=== PATIENT | female | born 1930 | race Caucasian/White ===

== ENCOUNTER → 2016-11-09 | Outpatient (CLI) | payer MEDICARE ==
[~2016-11-09] MED LIST: ANTIVERT PO; CALCIUM 6001 TA1 PO; COD LIVER OIL PO; FISH OIL1000 MG PO; GLIMEPIRIDE2 MG PO; GLYBURIDE2.5 MG PO; IBUPROFEN1 CRY PO; MAGNESIUM PO; NEXIUM40 MG PO; PRILOSEC20 MG PO; PROBIOTIC FORMU1 CA1 PO; REGLAN5 MG PO; SUPER B COMPLEX1 CAP PO; SYNTHROID,LEV100 MCG PO; VISION FORMULA1 TAB PO; VITAMIN D31000 I1 PO; [UNRECOGNIZED DRUG - OTHER] PO; [UNRECOGNIZED DRUG - OTHER] PO
== END ==
LOC: CT 09:28
DX: K57.30 Diverticulosis of large intestine without perforation or abscess without bleeding (principal); M47.893 Other spondylosis, cervicothoracic region; M40.294 Other kyphosis, thoracic region; M47.896 Other spondylosis, lumbar region; J44.9 Chronic obstructive pulmonary disease, unspecified; Z90.3 Acquired absence of stomach [part of]; Z90.81 Acquired absence of spleen; Z98.890 Other specified postprocedural states; Z85.028 Personal history of other malignant neoplasm of stomach

== ENCOUNTER → 2017-07-01 | Outpatient (CLI) | payer MEDICARE ==
[2017-07-01 11:26] LABS: HEMATOCRIT 22.7 % (37.0-47.0); HEMOGLOBIN 7.2 g/dl (12.0-16.0)
== END | disposition home or self-care (01) ==
LOC: LAB 03:18
DX: K92.2 Gastrointestinal hemorrhage, unspecified (principal)

== ENCOUNTER 2019-06-02 12:24 | Emergency (ER) | payer MEDICARE ==
[~2019-06-02] VITALS: Ht 162.5 cm; Wt 52.2 kg
[2019-06-02 13:21] LABS: HEMATOCRIT 38.7 % (37.0-47.0); HEMOGLOBIN 12.1 g/dl (12.0-16.0); MEAN CELL VOLUME 89.2 fl (81.0-99.0); MEAN CORPUSCULAR HGB 27.9 pg (27.0-31.0); MEAN CORPUSCULAR HGB CONC 31.3 g/dl (33.0-37.0); MEAN PLATELET VOLUME 11.1 fl (9.6-12.3); PLATELET COUNT AUTOMATED 454 10*3/uL (130-400); RED BLOOD COUNT 4.34 10*6/uL (4.10-5.10); RED CELL DISTRI WIDTH 13.8 % (0-14.5); WHITE BLOOD COUNT 6.4 10*3/uL (4.8-10.8)
[2019-06-02 13:26] LABS: ACT PARTIAL THROMBO TIME 24.2 SECONDS (20.0-32.1)
[2019-06-02 13:32] LABS: ALBUMIN 3.4 gm/dl (3.1-4.5); ALKALINE PHOSPHATASE 107 U/L (45-117); BUN 13 mg/dl (7-24); CHLORIDE 97 mmol/L (98-107); CREATININE 1.24 mg/dL (0.55-1.02); POTASSIUM 4.8 mmol/L (3.5-5.1); SGOT/AST 29 IU/L (3-35); SGPT/ALT 25 U/L (12-78); SODIUM 132 mmol/L (136-145); TOTAL PROTEIN 7.2 gm/dL (6.4-8.2)
[2019-06-02 13:34] LABS: TROPONIN I < 0.015 ng/ml (<0.045)
[2019-06-02 13:36] LABS: ACANTHOCYTES FEW; BASOPHILS 1 % (0-1); PLATELET SUFFICIENCY HIGH (NORMAL); TOTAL CELLS COUNTED 100 #CELLS
[2019-06-02 13:37] LABS: TARGET CELLS FEW
[2019-06-02 14:17] LABS: BILIRUBIN NEGATIVE (NEGATIVE); BLOOD NEGATIVE (NEGATIVE); CLARITY CLEAR (CLEAR); COLOR YELLOW (YELLOW); GLUCOSE NEGATIVE (NEGATIVE); KETONE NEGATIVE (NEGATIVE); LEUKO ESTERASE NEGATIVE (NEGATIVE); NITRITE NEGATIVE (NEGATIVE); UROBILINOGEN 0.2 E.U./dl (0.2-1.0)
[2019-06-02 14:21] LABS: EPITHELIAL CELLS 41-50
[2019-06-02 14:22] LABS: BACTERIA TRACE
== END 2019-06-02 15:10 | disposition home or self-care (01) ==
LOC: ED 12:24
PROVIDERS: Emergency Medicine
DX: R42 Dizziness and giddiness (principal); E11.65 Type 2 diabetes mellitus with hyperglycemia; I95.9 Hypotension, unspecified; E87.1 Hypo-osmolality and hyponatremia; R79.1 Abnormal coagulation profile; Z88.0 Allergy status to penicillin; Z88.2 Allergy status to sulfonamides; Z88.8 Allergy status to other drugs, medicaments and biological substances; Z79.899 Other long term (current) drug therapy; Z79.4 Long term (current) use of insulin